=== PATIENT | male | born 1945 | race Two or more races ===

== ENCOUNTER 2025-01-07 17:53 | Inpatient (IN) | payer MEDICARE, OTHER ==
[~2025-01-07] VITALS: Ht 165.1 cm; Wt 69.9 kg
[2025-01-07] MEDS ORDERED: MAGNESIUM HYDROXIDE 30 ML UDC PO PRN (19:30)
[2025-01-07] MEDS ORDERED: MAG HYDROX/AL HYDROX/SIMETH 30 ML UDC PO PRN (19:30)
[2025-01-07] MEDS ORDERED: ZOLPIDEM TARTRATE 5 MG TABLET PO PRN ×2 (19:30)
[2025-01-07 19:50] VITALS: BP 138/82; TEMP 97.9; O2SAT 99
[2025-01-07] MEDS: BLOOD SUGAR DIAGNOSTIC 1 EACH STRIP IN ONE (19:57)
[2025-01-07] MEDS: LORAZEPAM 1 MG TABLET PO PRN (20:05)
[2025-01-07] MEDS ORDERED: PRAV20TA4 PO (23:25)
[2025-01-07] MEDS ORDERED: MAGN500C16 PO (23:25)
[2025-01-07] MEDS ORDERED: PROP10TA68 PO (23:25)
[2025-01-07] MEDS ORDERED: OLAN2.5T3 PO (23:25)
[2025-01-07] MEDS ORDERED: QUET25TA PO (23:25)
[2025-01-07] MEDS ORDERED: RIME75TA PO (23:25)
[2025-01-07] MEDS ORDERED: OMEP20CA15 PO (23:25)
[2025-01-07] MEDS ORDERED: GABA-532 PO (23:25)
[2025-01-07] MEDS ORDERED: ONDA4TAB11 PO (23:25)
[2025-01-07] MEDS ORDERED: TIZA-180 PO (23:25)
[2025-01-08 08:00] VITALS: BP 151/94; TEMP 98.1; O2SAT 97
[2025-01-08 08:34] LABS: TRIGLYCERIDES 45 mg/dL (30-150)
[2025-01-08] MEDS: GABAPENTIN 100 MG CAPSULE PO SCH (09:40)
[2025-01-08] MEDS: TIZANIDINE HCL 4 MG TABLET PO SCH (09:40)
[2025-01-08] MEDS: PROPRANOLOL HCL 10 MG TABLET PO SCH (09:42)
[2025-01-08 10:10] LABS: ALBUMIN 4.1 g/dL (3.4-5.0); BILIRUBIN,TOTAL 1.3 mg/dL (0.2-1.0); CALCIUM, SERUM 9.7 mg/dL (8.5-10.1); CREATININE 1.1 mg/dL (0.6-1.3); POTASSIUM 3.6 mmol/L (3.5-5.1); TOTAL PROTEIN, SERUM 8.4 g/dL (6.4-8.2)
[2025-01-08 10:20] LABS: CHOLESTEROL 168 mg/dL (<200); HDL CHOLESTEROL 76 mg/dL (40-60); LDL 88 mg/dL (0-99)
[2025-01-08] MEDS ORDERED: BREX0.25 PO (12:01)
[2025-01-08] MEDS ORDERED: TAMS-12 PO (12:01)
[2025-01-08] MEDS ORDERED: OLAN2.5T3 PO (12:01)
[2025-01-08] MEDS ORDERED: SERT25TA5 PO (12:01)
[2025-01-08] MEDS ORDERED: PROP20TA7 PO (12:01)
[2025-01-08] MEDS ORDERED: DONE10TA44 PO (12:01)
[2025-01-08] MEDS ORDERED: LORA-258 PO (12:01)
[2025-01-08 15:58] VITALS: BP 104/63; TEMP 98.2; O2SAT 96
[2025-01-08] MEDS: DIVALPROEX SODIUM 125 MG CAP.SPRINK PO SCH (16:22)
[2025-01-08 20:04] VITALS: BP 136/83; TEMP 98.2; O2SAT 98
[2025-01-08] MEDS: MAGNESIUM OXIDE 400 MG TABLET PO SCH (21:17)
[2025-01-08] MEDS: QUETIAPINE FUMARATE 25 MG TABLET PO SCH (21:17)
[2025-01-08] MEDS: ATORVASTATIN 10 MG TABLET PO SCH (21:18)
[2025-01-09 08:00] VITALS: BP 133/85; TEMP 98.7; O2SAT 98
[2025-01-09] MEDS: LORAZEPAM 0.5 MG TABLET PO PRN (12:55)
[2025-01-09 16:00] VITALS: BP 136/86; TEMP 97.6; O2SAT 98
[2025-01-09 20:00] VITALS: BP 131/76; TEMP 98.1; O2SAT 98
[2025-01-10 08:00] VITALS: BP 122/89; TEMP 97.8; O2SAT 97
[2025-01-10 16:00] VITALS: BP 128/92; TEMP 98.1; O2SAT 99
[2025-01-10 20:58] VITALS: BP 137/89; TEMP 98.1; O2SAT 100
[2025-01-11] MEDS: ACETAMINOPHEN 325 MG TABLET PO PRN (05:43)
[2025-01-11 08:00] VITALS: BP 137/86; TEMP 97.8; O2SAT 100
[2025-01-11 16:00] VITALS: BP 110/73; TEMP 97.5; O2SAT 97
[2025-01-11 20:10] VITALS: BP 139/68; TEMP 97.6; O2SAT 98
[2025-01-12 08:00] VITALS: BP 144/82; TEMP 98.1; O2SAT 98
[2025-01-12] MEDS: DIVALPROEX SODIUM 125 MG CAP.SPRINK PO SCH (13:54)
[2025-01-12 15:21] VITALS: BP 142/75; TEMP 97.9; O2SAT 100
[2025-01-12 20:43] VITALS: BP 141/84; TEMP 97.9; O2SAT 99
[2025-01-13 08:00] VITALS: BP 126/77; TEMP 97.9; O2SAT 98
[2025-01-13] MEDS: OLANZAPINE 10 MG VIAL IM STA (13:53)
[2025-01-13 16:00] VITALS: BP 126/73; TEMP 98.2; O2SAT 98
[2025-01-13 20:28] VITALS: BP 124/84; TEMP 97.7; O2SAT 98
[2025-01-14 08:00] VITALS: BP 119/76; TEMP 97.7; O2SAT 97
[2025-01-14] MEDS: QUETIAPINE FUMARATE 25 MG TABLET PO SCH (10:15)
[2025-01-14 16:01] VITALS: BP 132/79; TEMP 98.2; O2SAT 100
[2025-01-15 08:00] VITALS: BP 131/88; TEMP 98.6; O2SAT 98
[2025-01-15 16:00] VITALS: BP 122/80; TEMP 97.7; O2SAT 99
[2025-01-15 19:54] VITALS: BP 132/81; TEMP 97.8; O2SAT 98
[2025-01-16 08:00] VITALS: BP 133/88; TEMP 97.8; O2SAT 97
[2025-01-16 16:00] VITALS: BP 112/89; TEMP 97.8; O2SAT 97
[2025-01-16 19:49] VITALS: BP 101/63; TEMP 97.8; O2SAT 98
[2025-01-17 08:00] VITALS: BP 127/74; TEMP 97.5; O2SAT 97
[2025-01-17 16:00] VITALS: BP 113/89; TEMP 98; O2SAT 95
== END 2025-01-17 20:10 | disposition home or self-care (01) | DRG 885 ==
LOC: ER 18:06 → GPS 18:49
PROVIDERS: ADMIT Psychiatry & Neurology Psychiatry; ATTEND Nurse Practitioner Acute Care
DX: F29 Unspecified psychosis not due to a substance or known physiological condition (principal); F05 Delirium due to known physiological condition; F03.911 Unspecified dementia, unspecified severity, with agitation; E87.1 Hypo-osmolality and hyponatremia; F03.92 Unspecified dementia, unspecified severity, with psychotic disturbance; I25.10 Atherosclerotic heart disease of native coronary artery without angina pectoris; Z79.899 Other long term (current) drug therapy; I10 Essential (primary) hypertension
CPT/HCPCS: 36415; 80053-TC; 80061-TC; 80164-TC; 82962-TC; J3490